=== PATIENT | male | born 1955 | race Caucasian/White ===

== ENCOUNTER → 2016-09-21 | Outpatient (CLI) | payer BC, OTHER | LOC: M CARPUL 16:48 | DX: C15.4 Malignant neoplasm of middle third of esophagus (principal) ==

== ENCOUNTER → 2019-10-14 | Outpatient (REF) | payer OTHER ==
[~2019-10-14] MED LIST: CLAR10CA3 PO; FISH1000 PO; MELA10CA2 PO; MELA10TA2 PO; MULTCAP PO; PROBCAP14 PO
[2019-10-16 00:06] LABS: PSA % FREE 16.6 % (.); PSA FREE 1.03 ng/mL; PSA TOTAL 6.2 ng/mL (0.0-4.0)
== END ==
LOC: M LAB REF 12:41
PROVIDERS: ATTEND Internal Medicine
DX: R97.20 Elevated prostate specific antigen [PSA] (principal)

== ENCOUNTER → 2019-11-13 | Outpatient (REF) | payer OTHER | LOC: M LAB REF 10:04 | PROVIDERS: ATTEND Urology | DX: R97.20 Elevated prostate specific antigen [PSA] (principal) ==

== ENCOUNTER → 2019-12-20 | Outpatient (CLI) | payer BC, OTHER ==
[~2019-12-20] MED LIST changes: +GASTROGRAFIN SOLUTION 30ML (Q9963) As Ordered ONE; +ISOVUE-370 76% 100ML VIAL As Ordered ONE; +RA T500C2 PO; +berberine PO
--- NOTE | 2019-12-20 10:28 | REP ---
REASON FOR EXAM: History of esophageal carcinoma. COMPARISON: 05/11/2016 CONTRAST: 100 mL Isovue 370. Since the last examination, there has been gastric pull through procedure. There are surgical clips in the mediastinum. There is no mediastinal or hilar adenopathy. There are no pleural or pericardial effusions. The imaged upper abdomen is within normal limits. The imaged osseous structures are within normal limits. Evaluation of the lung patel shows a 1 cm sized round, but somewhat irregular nodule in the right lower lobe which represents a change from the prior exam. IMPRESSION: 1. Right lower lobe nodule as described above. PET/CT is recommended. I will restate that the only prior I have for comparison is a preoperative examination of 05/11/2016. 2. Status post gastric pull through procedure. Electronically Signed by Shlomo Farah DO 12/20/2019 11:08 A
--- NOTE | 2019-12-20 10:37 | REP ---
REASON: History of esophageal carcinoma. Only prior for comparison is 05/11/2016, a preoperative exam. CONTRAST: 100 mL Isovue-370. The left lobe of the liver is much smaller on today's exam compared to the prior exam. There are no enhancing hepatic lesions. The gallbladder, spleen, adrenal glands, and kidneys are essentially unchanged and again seen to be within normal limits. The pancreas is morphologically different compared to the prior exam; however, there are surgical clips seen near the pancreatic head region and the pancreas is seen without abnormal ductal dilatation or an enhancing lesion. The abdominal aorta and para-aortic regions are within normal limits. There is no free fluid or free air in the abdomen. There are changes in the abdomen, consistent with a gastric pull-through procedure due to esophageal carcinoma. The bowel loops and their mesenteries are otherwise unremarkable in appearance. CT PELVIS: The bowel loops and their mesenteries are within normal limits. There is no mass or adenopathy. There is no free fluid or free air. Bone window technique throughout the examination shows degenerative changes seen involving the hips, spine, sacroiliac joints. IMPRESSION: 1. Status post gastric pull-through procedure and likely postoperative changes seen involving the pancreas, as described above. 2. The left lobe of the liver is much smaller on today's exam compared to the prior exam, however, I have not been given prior history of previous partial hepatectomy. The change could be secondary to postradiation changes. 3. There is no evidence of acute intra-abdominal or intrapelvic disease with findings as described above. I will reiterate once again, that the only prior I have for comparison is 05/11/2016, a preoperative exam. Electronically Signed by Shlomo Farah DO 12/20/2019 11:09 A
--- NOTE | 2019-12-20 10:45 | REP ---
SOFT-TISSUE NECK CT STUDY WITH IV CONTRAST: HISTORY: Restaging esophageal carcinoma. No comparison CT study. CT CONTRAST DOSE: 100 mL of intravenous Isovue 370. CT FINDINGS: There is a right-sided internal jugular vein [id number] catheter. Thyroid lobes are normal and symmetric. Submandibular and parotid glands are symmetric. Tonsillar and peritonsillar soft tissues are unremarkable. There is no visible neck mass or adenopathy. Glottic and subglottic airway appear intact. The cervical esophagus is unremarkable. The patient is status post esophagectomy and gastric pull-through. No bony destructive lesion is seen. There are some degenerative spondylosis changes in the cervical spine . IMPRESSION: Status post esophagectomy and gastric pull-through. No neck mass or adenopathy seen. Electronically Signed by Darnell Downey MD 12/20/2019 04:15 P
== END ==
LOC: M RAD 07:31
PROVIDERS: ATTEND Internal Medicine Hematology
DX: C15.9 Malignant neoplasm of esophagus, unspecified (principal)
CPT/HCPCS: 70491; 71260; 74177; J1642; Q9963; Q9967

== ENCOUNTER → 2020-09-28 | Outpatient (REF) | payer MEDICARE, OTHER ==
[~2020-09-28] MED LIST changes: +FAMO1TAB25 PO; -GASTROGRAFIN SOLUTION 30ML (Q9963) As Ordered ONE; -ISOVUE-370 76% 100ML VIAL As Ordered ONE; +OMEP40CA97 PO; +ONDA-83 PO; +TAMS1CAP17 PO
[2020-10-01 00:07] LABS: PSA % FREE 18.8 % (.); PSA FREE 1.24 ng/mL; PSA TOTAL 6.6 ng/mL (0.0-4.0)
== END ==
LOC: M LAB REF 16:18
PROVIDERS: ATTEND Internal Medicine
DX: R97.20 Elevated prostate specific antigen [PSA] (principal)

== ENCOUNTER → 2020-10-10 | Outpatient (CLI) | payer MEDICARE, BC, OTHER | LOC: M LABSMTC 11:14 | PROVIDERS: ATTEND Surgery | DX: Z01.812 Encounter for preprocedural laboratory examination (principal); Z20.822 Contact with and (suspected) exposure to COVID-19; C15.5 Malignant neoplasm of lower third of esophagus ==

== ENCOUNTER 2021-02-01 19:38 | Emergency (ER) | payer MEDICARE, BC, OTHER ==
[~2021-02-01] VITALS: Ht 175.3 cm; Wt 63.6 kg
[~2021-02-01 19:38] MED LIST changes: +FAMO10TA50 PO; -FAMO1TAB25 PO; +OMEP40CA4 PO; -OMEP40CA97 PO
[2021-02-01 21:01] LABS: BASO % 0.7 % (0.0-1.0); HEMATOCRIT 33.8 % (42.0-52.0); HEMOGLOBIN 11.6 g/dl (13.5-17.5); LYMPH # 0.5 10^3/uL (1.5-5.0); LYMPH % 18.4 % (24.0-44.0); MEAN CORPUSCULAR HEMOGLOBIN 33.8 pg (27.0-33.0); MEAN CORPUSCULAR HGB CONC 34.3 g/dl (32.0-36.5); MEAN CORPUSCULAR VOLUME 98.5 fl (80.0-96.0); MONO # 0.2 10^3/uL (0.0-0.8); MONO % 7.1 % (2.0-8.0); NEUTROPHILS # 2.1 10^3/uL (1.5-8.5); NEUTROPHILS % 73.1 % (36.0-66.0); PLATELET COUNT, AUTOMATED 103 10^3/uL (150-450); RED BLOOD COUNT 3.43 10^6/uL (4.30-6.10); WHITE BLOOD COUNT 2.8 10^3/uL (4.0-10.0)
[2021-02-01] MEDS ORDERED: NS 1,000 ML IV ONE (21:05)
[2021-02-01 21:13] LABS: BLOOD UREA NITROGEN 17 MG/DL (7-18); CALCIUM LEVEL 8.1 MG/DL (8.8-10.2); CARBON DIOXIDE LEVEL 29 MEQ/L (21-32); CHLORIDE LEVEL 105 MEQ/L (98-107); CREATININE FOR GFR 1.01 MG/DL (0.70-1.30); GLOMERULAR FILTRATION RATE > 60.0 (>49); GLUCOSE, FASTING 132 MG/DL (70-100); POTASSIUM SERUM 3.9 MEQ/L (3.5-5.1); SODIUM LEVEL 138 MEQ/L (136-145)
--- NOTE | 2021-02-01 21:47 | REPVR ---
PROCEDURE INFORMATION: Exam: CT Cervical Spine Without Contrast Exam date and time: 02/01/2021 9:13 PM Age: 65 years old Clinical indication: Neck pain; Additional info: Trauma TECHNIQUE: Imaging protocol: Computed tomography images of the cervical spine without contrast. Radiation optimization: All CT scans at this facility use at least one of these dose optimization techniques: automated exposure control; mA and/or kV adjustment per patient size (includes targeted exams where dose is matched to clinical indication); or iterative reconstruction. COMPARISON: CT Neck with contrast 12/20/2019 9:24 AM FINDINGS: Bones/joints: Mild anterolisthesis of C3 on C4. Alignment otherwise unremarkable. Discs/Spinal canal/Neural foramina: Disc space narrowing at C5-C6 and C6-C7 with intervertebral osteophytes. There are degenerative changes demonstrated in the atlantoaxial joint at C1-C2 with osteophytes and joint space narrowing. The transverse ligament is normal. Moderate foraminal narrowing on the right at C4, moderate to severe foraminal narrowing on the right and mild foraminal narrowing on the left at C5, bilateral mild foraminal narrowing at C6 secondary to osteophytic encroachment. Disc osteophyte complexes demonstrated at C3-C4 through C6-C7 resulting in varying degrees of effacement of the ventral subarachnoid space. There is mild cord impingement at C3-C4, moderate cord impingement at C4-C5, moderate right eleonora cord impingement at C5-C6, and mild cord impingement at C6-C7. Lungs: Lung apices are normal. Soft tissues: See "Discs/Spinal canal/Neural foramina" finding. IMPRESSION: Degenerative spondylosis. No acute findings. Electronically signed by: Agustín Diggs On 02/01/2021 21:46:53 PM
--- NOTE | 2021-02-01 21:49 | REPVR ---
PROCEDURE INFORMATION: Exam: CT Head Without Contrast Exam date and time: 02/01/2021 9:13 PM Age: 65 years old Clinical indication: Pain; Headache; Additional info: Trauma TECHNIQUE: Imaging protocol: Computed tomography of the head without contrast. Radiation optimization: All CT scans at this facility use at least one of these dose optimization techniques: automated exposure control; mA and/or kV adjustment per patient size (includes targeted exams where dose is matched to clinical indication); or iterative reconstruction. COMPARISON: CT Neck with contrast 12/20/2019 9:24 AM FINDINGS: Brain: There is mild diffuse cerebellar atrophy. Bilateral basal ganglia calcifications. Mild symmetric cerebral atrophy. No significant white matter disease. Cerebral ventricles: The degree of ventricular dilatation is normal for age and/or degree of atrophy present. Paranasal sinuses: Visualized sinuses are unremarkable. No fluid levels. Mastoid air cells: Visualized mastoid air cells are well aerated. Bones/joints: Unremarkable. No acute fracture. Soft tissues: Unremarkable. IMPRESSION: 1. There is mild diffuse cerebellar atrophy. 2. The degree of ventricular dilatation is normal for age and/or degree of atrophy present. 3. No acute intracranial findings. Electronically signed by: Agustín Diggs On 02/01/2021 21:48:31 PM
[2021-02-01 23:30] VITALS: BP 117/60
--- NOTE | 2021-02-02 07:25 | ED PDOC ---
Post-Departure Follow-Up radiology report faxed to Angelica Gutierrez MD Feb 02, 2021 07:25
--- NOTE | 2021-02-03 19:53 | ECGEPIP ---
[facility] - ED Test Date: 2021-02-01 Pat Name: ZULEIKA SCOTT Department: Room: - Gender: Male [place] Former: CARI : 1955 Requested By: OCHOA Lopes Order Number: [id number] Reading MD: Angelica Giron Measurements Intervals [place] Rate: 59 P: 30 WV: 178 QRS: 33 QRSD: 76 T: 35 QT: 434 QTc: 429 Interpretive Statements Sinus bradycardia No prior Electronically Signed on 02-03-2021 19:52:54 EDT by Angelica Giron
== END 2021-02-01 23:50 | disposition home or self-care (01) ==
LOC: M ED 19:38
DX: R00.1 Bradycardia, unspecified (principal); R55 Syncope and collapse; T45.1X5A Adverse effect of antineoplastic and immunosuppressive drugs, initial encounter; S01.01XA Laceration without foreign body of scalp, initial encounter; W19.XXXA Unspecified fall, initial encounter; Y92.9 Unspecified place or not applicable; Y93.9 Activity, unspecified; Y99.9 Unspecified external cause status; C15.9 Malignant neoplasm of esophagus, unspecified; M47.812 Spondylosis without myelopathy or radiculopathy, cervical region

== ENCOUNTER → 2021-04-12 | Outpatient (CLI) | payer MEDICARE, BC, OTHER ==
[~2021-04-12] MED LIST changes: +ISOVUE-370 76% 100ML VIAL As Ordered ONE
--- NOTE | 2021-04-12 09:33 | REPVR ---
PROCEDURE INFORMATION: Exam: CT Neck With Contrast Exam date and time: 04/12/2021 8:34 AM Age: 66 years old Clinical indication: Condition or disease; Cancer; Other: Esophageal; Additional info: Esophageal CA, TECHNIQUE: Imaging protocol: Computed tomography images of the neck with contrast. Radiation optimization: All CT scans at this facility use at least one of these dose optimization techniques: automated exposure control; mA and/or kV adjustment per patient size (includes targeted exams where dose is matched to clinical indication); or iterative reconstruction. Contrast material: ISOVUE 370; Contrast volume: 100 ml; Contrast route: INTRAVENOUS (IV); COMPARISON: CT Neck with contrast 12/20/2019 9:24 AM FINDINGS: Limitations: Limited by poor contrast bolus and timing with poor arterial opacification and lack of any significant venous opacification. Also limited by lack of fat planes and dental amalgam artifact. Nasopharynx: Unremarkable. Oropharynx: Oral cavity is partially obscured by artifact and appears unremarkable as visualized. Tonsils are nonenlarged. Hypopharynx: Unremarkable. Larynx: Unremarkable. Normal epiglottis. Retropharyngeal space: Unremarkable. Submandibular/Parotid glands: Normal. Glands are normal in size. Thyroid: No significant thyroid nodule. Lymph nodes: There are bilateral small cervical lymph nodes in the upper to mid neck. Trachea: See "Soft tissues" finding. Lungs: Unremarkable as visualized. Bones/joints: There are degenerative changes in cervical spine. No bony destructive lesions are appreciated. Soft tissues: Patient is status post esophagectomy and gastric pull-through. There is soft tissue density in the right paravertebral region in the upper chest corresponding to fluid-filled gastric pull-through on prior examination which is now mostly collapsed. The proximal esophagus above level of gastric pull-through appears thickened. There is new soft tissue ill-defined fullness in the adjacent right paraesophageal region and supraclavicular region. There is associated loss of fat planes. This is ill-defined and difficult to measure but is in the range 4 cm diameter on axial images. This appears to surround the traversing proximal right vertebral artery and proximal right common carotid artery, with evaluation limited by degree of contrast opacification. At level of thyroid gland, there is some mass effect with anteromedial displacement of carotid space and slight mass effect on the adjacent right lobe of thyroid gland. This is inseparable from the adjacent musculature. This also appears to at least partially surround the right subclavian artery. Integrity and patency of venous structures cannot be determined due to lack of venous opacification. This does appear to surround the lower internal jugular vein and region of medial subclavian vein. There are opacified venous tributaries in the bilateral supraclavicular region and paraspinal region suggesting collaterals. There is associated mild mass effect and minimal midline shift of adjacent trachea. This is concerning for mass and recurrent/tumor progression. Recommend correlation with PET CT to determine metabolic activity. IMPRESSION: Limited examination as described. New soft tissue fullness/mass in right supraclavicular region concerning for tumor progression/mass which appears to encase vascular structures as described. Recommend correlation with PET CT. Electronically signed by: Amber Rausch On 04/12/2021 09:32:34 AM
--- NOTE | 2021-04-12 12:43 | REP ---
INDICATION: ESOPHAGEAL CA, EVAL LESION ON MUSCLE OF FEMUR. COMPARISON: PET-CT 03/29/2021. TECHNIQUE: Axial CT left femur and thigh performed following the intravenous administration of 100 cc of Isovue 370. Sagittal and coronal reconstruction images are performed. FINDINGS: At the site of focal FDG accumulation in the left inferior gluteal/superior posterior thigh region, there is a focal enhancing soft tissue nodule. This measures approximately 2.0 x 1.6 cm. It is located at the deep margin of the gluteus ricardo muscle and along the lateral margin of the semimembranous and semitendinosis muscles. No other enhancing nodule is seen in the visualized soft tissues of the thigh. The left femur is intact with no fracture or bone lesion. IMPRESSION: There is an enhancing soft tissue nodule in the left posterior thigh superior aspect, located at the deep margin of the left gluteus ricardo and along the lateral margin of the left semimembranous and semitendinosis muscles. It measures 2.0 x 1.6 cm and corresponds to the focus of FDG uptake on the recent PET scan. <Electronically signed by Ronnie Barajas > 04/12/21 [id number]
== END ==
LOC: M RAD 08:11
PROVIDERS: ATTEND Radiology Radiation Oncology
DX: C15.5 Malignant neoplasm of lower third of esophagus (principal); M79.9 Soft tissue disorder, unspecified
CPT/HCPCS: 70491; 73701; Q9967

== ENCOUNTER → 2021-06-18 | Outpatient (CLI) | payer MEDICARE, BC, OTHER ==
[~2021-06-18] MED LIST changes: -ISOVUE-370 76% 100ML VIAL As Ordered ONE; +OXYC10TA12 PO; +OXYC1SOL3 PO
--- NOTE | 2021-06-18 11:37 | RADONC.CN ---
Radiation Oncology Hx/Consult Radiation Oncology Consult Date of Service: Jun 18, 2021 Pt Identifier Jordin Farah is a 66 year old male with metastatic esophageal adenocarcinoma. He is seen today at the request of Dr. Cornelius for consideration of palliative RT to cutaneous and intramuscular metastases causing him pain. Diagnosis/Treatment History Oncologic History [id number] adenocarcinoma of the esophagus Diagnosed in 2015 underwent neoadjuvant chemoradiation @ [facility] [place] [facility] followed by open esophagectomy with pull through 12/01/16. Recurrence on PET-CT 2018. He received adjuvant FOLFOX completed 08/2019 followed by maintenance 5-FU in 2019. 09/15/20 PET-CT with progression. 12/08/20 started carbo/taxol/nivolumab for progression completed 02/16/21. 03/05/21 CT with progression. Received 30 Gy in 12 fractions to the mediastinum and right neck @ [facility] completed 05/07/21. Noted to have cutaneous metastases and a right calf mass on exam. Interval History Keith reports that he was profoundly fatigued by the prior course of palliative RT to the mediastinum @ [facility] which he discontinued @ 30 Gy. He has the ability to swallow most food with care. He says his weight is up 3 lbs in recent weeks. Overall though he has lost weight this year. He has 2 lesions of concern on the skin, one left cheek is becoming tender to touch, the other in the suprapubic skin is also enlarging. The only site of significant pain is in the right calf where he has developed a hard mass that aches and causes tingling into his foot. Past Medical History: GERD ELevated PSA Velasquez's esophagus Past Surgical History: Right knee ganglion excision Esophagectomy Family History: Brother 1 prostate cancer Brother 2 prostate cancer Social History: Never smoker Never drinker Allergies / Meds Allergies: Coded Allergies: No Known Allergies (Unverified , 08/03/18) Home Meds Reported Medications Omeprazole (Omeprazole) 40 Mg Capsule., 40 MG PO DAILY for 30 Days, #30 CAP 07/14/20 Ondansetron HCl (Ondansetron HCl) 4 Mg Tablet, 1 TAB PO Q6HP PRN for nausea/vomiting 06/15/20 Lactobacillus Acidophilus (Probiotic) 1 Each Capsule, 1 CAP PO DAILY for 10 Days, #10 CAP 09/18/19 Review of Systems Constitutional: Reports: Fatigue; Denies: Weight Loss Eyes: Denies: Pain HEENT: Reports: Other Symptoms (Left cheek swelling); Denies: Head Aches Skin: Reports: Lesions Pulmonary: Denies: Dyspnea Cardiovascular: Denies: Chest Pain Gastrointestinal: Reports: Abdominal Pain; Denies: Nausea Hematologic: Denies: Bruising, Bleeding Excessively Musculoskeletal: Reports: Leg pain; Denies: Neck pain Neurological: Denies: Weakness, Numbness Psych: Reports: Mood Normal Vital Signs Wt 129 lbs VS WNL General Exam: Alert, Cooperative, No Acute Distress Eye Exam: PERRLA, EOMI ENT EXAM: Other ENT (There is a nodular lesion in the left pre-parotid skin, it is violaceous hard and mobile, mild tenderness) Neck Exam: Lymphadenopathy (Right supraclavicular adenopathy evident) Chest Exam: Clear to auscultation, Normal air movement Heart Exam: Rate Normal Male Exam: Mass (There is a 3 cm violaceous subcutaneous mass in the suprapubic fat with overlying skin changes. It is mobile and non-tender) Extremity Exam: Tenderness, Other (There is a tender hard mass in the right upper calf) Neuro Exam: Normal Gait, Normal Speech, Cranial Nerves 3-12 NL Psych Exam: Mental status NL Diagnostic and Laboratory Diagnostic Review Radiologic images, relevant labs and pathology reports were personally reviewed and discussed with Mr. Farah. Assessment and Plan Impression Mr. Farah is a 66 year old male with a history of metastatic esophageal adenocarcinoma. He is seen today at the request of Dr. Cornelius for consideration of palliative RT to cutaneous and intramuscular metastases causing him pain. Stage Esophageal adenocarcinoma [id number] stage IV Performance Status ECOG 2 Plan We had an extensive discussion with Mr. Farah regarding the diagnosis at hand and available therapeutic options. He has 2 skin lesions which appear close to ulcerating; right cheek and suprapubic skin. These are amenable to palliative RT 20 Gy in 5 fractions with electrons. He also has a right calf metastasis causing pain, this too is amenable to palliative RT 20 Gy in 5 fractions with photons. All 3 sites would be treated spontaneously. He has no additional known painful or threatening metastases. He has a pending appointment with Dr. Byers to discuss next steps in systemic therapy on 06/28/21. We will simulate him the week of 06/21/21 and by mutual agreement we will start treatment on 06/28/21 afternoon. We discussed the logistics of receiving radiation therapy in detail including the need for a 1-time planning session. Pending for early next week. We reviewed the side effects of treatment namely skin reaction and fatigue. Af ter treatment is complete I would follow him up here if he wishes, as he may need additional palliative RT down the line. After discussing the risks, benefits and alternatives to radiation therapy, Mr. Farah was amenable to pursuing radiotherapy. All questions were answered to the patient's satisfaction. We instructed the patient that if there were any questions,concerns or changes in clinical status in the interim to contact us. Recommendations Palliative RT to right calf mass, left cheek, and suprapubic skin as described above Simulation next week Treatment to start 06/28/21 Billing Statement Total time of [34] minutes was spent preparing for the visit [2], obtaining HPI [6], examining the patient [4], reviewing diagnostic tests [3], discussing management options [10], coordinating care [2], and writing this note [7]. KENDRICK OSUNA MD Jun 18, 2021 11:37
== END ==
LOC: M ONCR 10:03
PROVIDERS: ATTEND General Practice
DX: C15.9 Malignant neoplasm of esophagus, unspecified (principal); C76.51 Malignant neoplasm of right lower limb; Z92.21 Personal history of antineoplastic chemotherapy

== ENCOUNTER → 2021-06-29 | Outpatient (RCR) | payer MEDICARE, BC, OTHER ==
[~2021-06-29] MED LIST changes: +LORAPOW30
== END ==
LOC: M ONCR 06-22 07:10
PROVIDERS: ATTEND General Practice
DX: C79.51 Secondary malignant neoplasm of bone (principal)

== ENCOUNTER 2021-07-12 08:08 | Outpatient (RCR) | payer MEDICARE, BC, OTHER ==
[2021-07-12] MEDS ORDERED: OXYC1SOL3 PO (09:48)
[2021-07-29] MEDS ORDERED: OXYC1SOL3 PO (11:18)
--- NOTE | 2021-07-29 11:23 | RADENCPD ---
Date/Time of Encounter Date of Encounter: Jul 29, 2021 Time of Encounter: 11:18 Encounter Spoke to Keith, he has restarted chemo with Dr. Byers, cisplatin and irinotecan, plan for 3 cycles then scans. Keith is contemplating transferring his chemotherapy back to our center. Told him that if he decides to, I will help facilitate. Also refilled his oxycodone. Reports the the treated cutaneous mets are responding to RT. KENDRICK OSUNA MD Jul 29, 2021 11:23
== END 2021-07-30 ==
LOC: M ONCR 08:08
PROVIDERS: ATTEND General Practice
DX: C79.51 Secondary malignant neoplasm of bone (principal)

== ENCOUNTER → 2021-08-12 | Outpatient (CLI) | payer MEDICARE, BC, OTHER | LOC: M ONCR 09:28 | PROVIDERS: ATTEND General Practice | DX: C79.2 Secondary malignant neoplasm of skin (principal); C79.51 Secondary malignant neoplasm of bone; Z92.3 Personal history of irradiation; Z92.21 Personal history of antineoplastic chemotherapy ==